=== PATIENT | female | born 1960 | race Caucasian/White ===

== ENCOUNTER 2017-10-09 13:19 | Emergency (ER) | payer MEDICAID ==
[2017-10-09 13:27] VITALS: BMI 25.7
[2017-10-09 13:30] VITALS: RESP 18; TEMP 97.9; O2SAT 98
[2017-10-09] MEDS ORDERED: Sodium Chloride 0.9% 500 ML IV STA (13:54)
--- NOTE | 2017-10-09 13:58 | ED PDOC ---
Arrival/HPI - General Chief Complaint: Headache Time Seen by Provider: 10/09/17 13:45 Historian: Patient - History of Present Illness Narrative History of Present Illness (Text): 10/09/17 13:55 57 year old female, with past medical history of hypertension and hyperlipidemia , presents to the Emergency department complaining of right-sided headache and dizziness since yesterday. Patient describes the dizziness as "spinning", which worsens with certain movements. Patient informs associated nausea and vomiting but denies similar symptoms in the past. Patient denies any fever, chills, diarrhea, abdominal pain, chest pain, shortness of breath or any other complaints. Patient denies smoking but admits to occasional drinking. PMD: Dr. Souza Time/Duration: 24 hours Symptom Onset: Gradual Symptom Course: Unchanged Quality: Aching Activities at Onset: Light Context: Home Associated Symptoms (Text): 10/09/17 14:11 Right sided headache with associated vertigo and nausea and vomiting since yesterday morning. No trauma. No abdominal pain. No chest pain palpitations or dyspnea. No weakness. No numbness. She has never experienced this previously. Past Medical History - Provider Review Nursing Documentation Reviewed: Yes - Infectious Disease Hx of Infectious Diseases: None - Tetanus Immunization Tetanus Immunization: Up to Date - Cardiac Hx Cardiac Disorders: No - Pulmonary Hx Respiratory Disorders: No - Neurological Hx Migraine: Yes - HEENT Hx HEENT Disorder: No - Renal Hx Renal Disorder: No - Endocrine/Metabolic Hx Endocrine Disorders: No - Hematological/Oncological Hx Blood Disorders: No - Integumentary Hx Dermatological Disorder: No - Musculoskeletal/Rheumatological Hx Musculoskeletal Disorders: No - Gastrointestinal Hx Gastrointestinal Disorders: No - Genitourinary/Gynecological Hx Genitourinary Disorders: No - Psychiatric Hx Depression: No Hx Emotional Abuse: No Hx Physical Abuse: No Hx Substance Use: No - Surgical History Hx Orthopedic Surgery: Yes (left) - Anesthesia Hx Anesthesia: No - Suicidal Assessment Feels Threatened In Home Enviroment: No Family/Social History - Physician Review Nursing Documentation Reviewed: Yes Family/Social History: No Known Family HX Smoking Status: Never Smoked Hx Alcohol Use: No Hx Substance Use: No Hx Substance Use Treatment: No Allergies/Home Meds Allergies/Adverse Reactions: Allergies Penicillins Allergy (Mild, Verified 10/09/17 13:27) RASH Review of Systems - Physician Review All systems were reviewed & negative as marked: Yes - Review of Systems Constitutional: Normal. absent: Fevers Eyes: Normal ENT: Normal Respiratory: Normal. absent: SOB Cardiovascular: Normal. absent: Chest Pain, Palpitations, Syncope Gastrointestinal: Nausea, Vomiting. absent: Abdominal Pain, Diarrhea Genitourinary Female: Normal Musculoskeletal: Normal Skin: Normal Neurological: Headache, Dizziness. absent: Focal Weakness, Seizure Endocrine: Normal Hemo/Lymphatic: Normal Psychiatric: Normal Physical Exam Vital Signs Reviewed: Yes Vital Signs Temp Pulse Resp BP Pulse Ox 10/09/17 13:30 97.9 F 66 18 118/80 98 Temperature: Afebrile Blood Pressure: Normal Pulse: Regular Respiratory Rate: Normal Appearance: Positive for: Well-Appearing, Non-Toxic, Uncomfortable Pain Distress: Mild Mental Status: Positive for: Alert and Oriented X 3 - Systems Exam Head: Present: Atraumatic, Normocephalic Pupils: Present: PERRL Extroacular Muscles: Present: EOMI Conjunctiva: Present: Normal Ears: Present: NORMAL TM, Normal Canal. No: Erythema Mouth: Present: Moist Mucous Membranes Pharnyx: No: ERYTHEMA, EXUDATE, TONSILS ENLARGED Neck: Present: Normal Range of Motion Respiratory/Chest: Present: Clear to Auscultation, Good Air Exchange. No: Respiratory Distress, Accessory Muscle Use Cardiovascular: Present: Regular Rate and Rhythm, Normal S1, S2. No: Murmurs Abdomen: Present: Normal Bowel Sounds. No: Tenderness, Distention, Peritoneal Signs Back: Present: Normal Inspection Upper Extremity: Present: Normal Inspection. No: Cyanosis, Edema Lower Extremity: Present: Other (right leg cast present). No: Edema Neurological: Present: GCS=15, CN II-XII Intact, Speech Normal, Motor Func Grossly Intact, Normal Sensory Function, Normal Cerebellar Funct Skin: Present: Warm, Dry, Normal Color. No: Rashes Psychiatric: Present: Alert, Oriented x 3, Normal Insight, Normal Concentration Medical Decision Making ED Course and Treatment: 10/09/17 14:01 Impression: 57 year old female presents to the Emergency department for headache and dizziness. Plan: -- CT of head -- EKG -- Labs -- Meclizine -- IV Fluids -- Toradol -- Zofran -- Reassess and disposition Progress Notes: 10/09/17 14:03 10/09/17 14:33 EKG shows sinus bradycardia approximately [address] or T-wave changes 10/09/17 15:05 Patient's nausea vomiting and dizziness have improved. No change in her headache. Imitrex has been ordered. 10/09/17 15:35 Almost immediately after receiving Imitrex the patient began to vomit; additional Zofran has been ordered. 10/09/17 16:04 Headache is still unchanged. Morphine has been ordered. 10/09/17 16:47 Headache and nausea and vomiting are improved. She reports that her dizziness has returned. She was offered hospital admission, but refused and wants to go home. Discharged home accompanied by her brother and son. Follow-up with PMD. Follow-up in the ER as needed. - Lab Interpretations Lab Results: 10/09/17 14:10 10/09/17 14:10 Lab Results 10/09/17 14:10: Sodium 143, Potassium 4.2, Chloride 102, Carbon Dioxide 29, Anion Gap 16, BUN 10, Creatinine 0.6 L, Est GFR ( Amer) > 60, Est GFR ( Non-Af Amer) > 60, Random Glucose 106, Calcium 10.3, Total Bilirubin 0.5, AST 30 , ALT 25, Alkaline Phosphatase 56, Lactate Dehydrogenase 496, Total Creatine Kinase 58, Troponin I < 0.01, Total Protein 7.8, Albumin 4.4, Globulin 3.5, Albumin/Globulin Ratio 1.3 10/09/17 14:10: WBC 5.0, RBC 4.52, Hgb 13.7, Hct 40.1, MCV 88.7, MCH 30.3, MCHC 34.2, RDW 13.0, Plt Count 247, MPV 10.0, Gran % 55.5, Lymph % (Auto) 30.7, [place] % (Auto) 7.4 H, Eos % (Auto) 6.2 H, Baso % (Auto) 0.2, Gran # 2.78, Lymph # ( Auto) 1.5, [place] # (Auto) 0.4, Eos # (Auto) 0.3, Baso # (Auto) 0.01 - RAD Interpretation Radiology Orders: 10/09/17 13:54 HEAD W/O CONTRAST [CT] Stat CT scan of the head as read by the radiologist shows no acute findings. Stone Paver: Radiologist - Medication Orders Current Medication Orders: Discontinued Medications Sodium Chloride (Sodium Chloride 0.9%) 500 mls @ 1,000 mls/hr IV .Q30M STA Stop: 10/09/17 14:23 Last Admin: 10/09/17 14:06 Dose: 1,000 mls/hr eMAR Start Stop Document 10/09/17 14:06 OCS (Rec: 10/09/17 14:07 OCS [id number]) Intravenous Solution Start Date 10/09/17 Start Time 14:07 End Date 10/09/17 End time 14:37 Total Infusion Time 30 Ketorolac Tromethamine (Toradol) 15 mg IVP STAT STA Stop: 10/09/17 13:58 Last Admin: 10/09/17 14:04 Dose: 15 mg MAR Pain Assessment Document 10/09/17 14:04 OCS (Rec: 10/09/17 14:04 OCS [id number]) Pain Reassessment Is this a pain reassessment? Yes Sleep Is patient sleeping during reassessment? No Presence of Pain Presence of Pain Yes Pain Scale Used Pain Scale Used Numeric Location Pain Location Body Title Lawyer Description Description Constant Intensity of Pain at present 10 Aggravating Factors ADL's IVP Administration Document 10/09/17 14:04 OCS (Rec: 10/09/17 14:04 OCS [id number]) Charges for Administration # of IVP Administrations 1 Meclizine HCl (Antivert) 25 mg PO ONCE ONE Stop: 10/09/17 13:56 Last Admin: 10/09/17 14:04 Dose: 25 mg Morphine Sulfate (Morphine) 4 mg IVP STAT STA Stop: 10/09/17 16:04 Last Admin: 10/09/17 16:17 Dose: 4 mg MAR Pain Assessment Document 10/09/17 16:17 OCS (Rec: 10/09/17 16:18 OCS [id number]) Pain Reassessment Is this a pain reassessment? Yes Sleep Is patient sleeping during reassessment? No Presence of Pain Presence of Pain Yes Pain Scale Used Pain Scale Used Numeric Location Pain Location Body Title Lawyer Description Description Constant Intensity of Pain at present 10 Aggravating Factors ADL's IVP Administration Document 10/09/17 16:17 OCS (Rec: 10/09/17 16:18 OCS [id number]) Charges for Administration # of IVP Administrations 1 Ondansetron HCl (Zofran Inj) 4 mg IVP ONCE ONE Stop: 10/09/17 13:56 Last Admin: 10/09/17 14:04 Dose: 4 mg IVP Administration Document 10/09/17 14:04 OCS (Rec: 10/09/17 14:04 OCS [id number]) Charges for Administration # of IVP Administrations 1 Ondansetron HCl (Zofran Inj) 4 mg IVP ONCE ONE Stop: 10/09/17 15:36 Last Admin: 10/09/17 15:47 Dose: 4 mg IVP Administration Document 10/09/17 15:47 OCS (Rec: 10/09/17 15:47 OCS [id number]) Charges for Administration # of IVP Administrations 1 Sumatriptan Succinate (Imitrex Inj) 6 mg SC STAT STA Stop: 10/09/17 15:06 Last Admin: 10/09/17 15:24 Dose: 6 mg Subcutaneous Administrations Document 10/09/17 15:24 OCS (Rec: 10/09/17 15:24 OCS [id number]) Injection Site MAR Injection Site Left Arm Charges for Administration # of Subcutaneous Administrations 1 - Scribe Statement The provider has reviewed the documentation as recorded by the Scribe Mart Quiroz. All medical record entries made by the Guanakitoibe were at my direction and personally dictated by me. I have reviewed the chart and agree that the record accurately reflects my personal performance of the history, physical exam, medical decision making, and the department course for this patient. I have also personally directed, reviewed, and agree with the discharge instructions and disposition. Disposition/Present on Arrival - Present on Arrival Any Indicators Present on Arrival: No History of DVT/PE: No History of Uncontrolled Diabetes: No Urinary Catheter: No History of Decub. Ulcer: No History Surgical Site Infection Following: None - Disposition Have Diagnosis and Disposition been Completed?: Yes Diagnosis: Vertigo, Nausea and vomiting, Headache Disposition: HOME/ ROUTINE Disposition Time: 16:48 Patient Plan: Discharge Condition: IMPROVED Discharge Instructions (ExitCare): Vertigo (a Type of Dizziness), Headache, Adult, Nausea and Vomiting, Adult (DC) Print Language: TAIWANESE Prescriptions: Meclizine [Meclizine*] 25 mg PO Q6 #20 tab Tramadol HCl [Ultram] 50 mg PO Q6 PRN #10 tab PRN Reason: Pain Ondansetron [Zofran Odt] 4 mg SL Q6 #20 odt Referrals: Steff Souza MD [Primary Care Provider] - Follow up with primary Forms: [employer] (Sami)
[2017-10-09 14:43] LABS: BASO # 0.01 K/mm3 (0.0-2.0); BASO % 0.2 % (0.0-3.0); EOS # 0.3 (0.0-0.7); EOS % 6.2 % (1.5-5.0); GRAN # 2.78 (1.4-6.5); GRAN % 55.5 % (50.0-68.0); HEMOGLOBIN 13.7 g/dL (12.0-16.0); LYMPH # 1.5 (1.2-3.4); LYMPH % 30.7 % (22.0-35.0); MEAN CELL VOLUME 88.7 fl (80.0-105.0); MEAN CORPUSCULAR HEMOGLOBIN 30.3 pg (25.0-35.0); MEAN CORPUSCULAR HGB CONC 34.2 g/dl (31.0-37.0); MONO # 0.4 (0.1-0.6); MONO % 7.4 % (1.0-6.0); RBC 4.52 10^6/uL (3.5-6.1)
[2017-10-09 14:56] LABS: ALB/GLOB RATIO 1.3 (1.1-1.8); ALBUMIN 4.4 g/dL (3.0-4.8); CALCIUM 10.3 mg/dL (8.4-10.5); GFR AFRICAN-AMERICAN > 60; GFR NON-AFRICAN AMERICAN > 60
[2017-10-09 14:58] LABS: ALT/SGPT 25 U/L (7-56); AST/SGOT 30 U/L (14-36); BLOOD UREA NITROGEN 10 mg/dL (7-21)
--- NOTE | 2017-10-09 15:02 | CT ---
PROCEDURE: CT HEAD WITHOUT CONTRAST. HISTORY: Dizziness COMPARISON: None available. TECHNIQUE: Axial computed tomography images were obtained through the head/brain without intravenous contrast. Radiation dose: Total exam DLP = 800.00 mGy-cm. This CT exam was performed using one or more of the following dose reduction techniques: Automated exposure control, adjustment of the mA and/or kV according to patient size, and/or use of iterative reconstruction technique. FINDINGS: HEMORRHAGE: No intracranial hemorrhage. BRAIN: Mcclelland-white matter differentiation is preserved. There is no mass, mass effect or abnormal extra-axial fluid collection. VENTRICLES: The ventricles are normal in size, shape and configuration. There is a cavum septum pellucidum. CALVARIUM: The skull base and calvarium are normal. PARANASAL SINUSES: There is mild mucosal thickening in the posterior ethmoid air cells, otherwise the visualized paranasal sinuses are predominantly clear. MASTOID AIR CELLS: Predominantly clear. OTHER FINDINGS: None. IMPRESSION: No acute intracranial abnormality.
[2017-10-09 15:07] LABS: TROPONIN I < 0.01 ng/mL
[2017-10-09] MEDS ORDERED: Morphine 4 mg/ml ISec IVP STA (16:03)
[2017-10-09 17:50] VITALS: BP 120/62; PULSE 70
--- NOTE | 2017-10-10 15:01 | CARD ---
APPROVED REPORT EKG Measurement Heart [id number] <Conclusion> Sinus bradycardia Otherwise normal ECG
== END 2017-10-09 17:22 | disposition home or self-care (01) ==
LOC: ED 13:19
DX: R42 Dizziness and giddiness (principal); R51 Headache; R11.2 Nausea with vomiting, unspecified; I10 Essential (primary) hypertension; E78.5 Hyperlipidemia, unspecified
CPT/HCPCS: 70450; 80053; 82550; 83615; 84484; 85025; 93005; 96372; 96374; 96375; 96376; 99285; J1885; J2270; J2405; J3030; J7040

== ENCOUNTER 2018-09-26 14:37 | Emergency (ER) | payer MEDICAID ==
[2018-09-26 14:37] VITALS: BMI 25.7
[2018-09-26 14:55] VITALS: O2SAT 98
--- NOTE | 2018-09-26 16:23 | RAD ---
Date of service: 09/26/2018 HISTORY: Cough COMPARISON: 01/22/2016 TECHNIQUE: Chest PA and lateral FINDINGS: LUNGS: No active pulmonary disease. PLEURA: No significant pleural effusion identified. No pneumothorax apparent. CARDIOVASCULAR: No aortic atherosclerotic calcification present. Normal cardiac size. No pulmonary vascular congestion. OSSEOUS STRUCTURES: No significant abnormalities. VISUALIZED UPPER ABDOMEN: Normal. OTHER FINDINGS: None. IMPRESSION: No active disease. No significant interval change compared to the prior examination(s).
--- NOTE | 2018-09-26 16:27 | ED PDOC ---
Arrival/HPI - General Chief Complaint: Cough, Cold, Congestion Time Seen by Provider: 09/26/18 14:56 Historian: Patient - History of Present Illness Narrative History of Present Illness (Text): 09/26/18 16:23 58yo female with no past medical history who present with complaint of nonproductive cough, headache, fever, body ache x 2days. States she took Tylenol yesterday. Denies chest pain, SOB, diaphoresis, nausea, vomiting, abdominal pain, sick contact, travel, any other complaint. Past Medical History - Provider Review Nursing Documentation Reviewed: Yes - Infectious Disease Hx of Infectious Diseases: None - Tetanus Immunization Tetanus Immunization: Up to Date - Reproductive Menopause: Yes - Cardiac Hx Cardiac Disorders: No - Pulmonary Hx Respiratory Disorders: No - Neurological Hx Migraine: Yes - HEENT Hx HEENT Disorder: No - Renal Hx Renal Disorder: No - Endocrine/Metabolic Hx Endocrine Disorders: No - Hematological/Oncological Hx Blood Disorders: No - Integumentary Hx Dermatological Disorder: No - Musculoskeletal/Rheumatological Hx Musculoskeletal Disorders: No - Gastrointestinal Hx Gastrointestinal Disorders: No - Genitourinary/Gynecological Hx Genitourinary Disorders: No - Psychiatric Hx Depression: No Hx Emotional Abuse: No Hx Physical Abuse: No Hx Substance Use: No - Surgical History Hx Orthopedic Surgery: Yes (left) - Anesthesia Hx Anesthesia: No - Suicidal Assessment Feels Threatened In Home Enviroment: No Family/Social History - Physician Review Nursing Documentation Reviewed: Yes Family/Social History: Unknown Family HX Smoking Status: Never Smoked Hx Alcohol Use: No Hx Substance Use: No Hx Substance Use Treatment: No Allergies/Home Meds Allergies/Adverse Reactions: Allergies Penicillins Allergy (Mild, Verified 10/09/17 13:27) RASH Review of Systems - Physician Review All systems were reviewed & negative as marked: Yes - Review of Systems Constitutional: Fatigue, Fevers Eyes: Normal ENT: Normal Respiratory: Cough Cardiovascular: Normal Gastrointestinal: Normal Genitourinary Female: Normal Musculoskeletal: Normal Skin: Normal Neurological: Normal Endocrine: Normal Hemo/Lymphatic: Normal Psychiatric: Normal Physical Exam Vital Signs Reviewed: Yes Vital Signs Temp Pulse Resp BP Pulse Ox 09/26/18 14:52 102.5 F H 96 H 20 144/87 98 Temperature: Febrile Blood Pressure: Normal Pulse: Regular Respiratory Rate: Normal Appearance: Positive for: Well-Appearing, Non-Toxic, Comfortable Pain Distress: None Mental Status: Positive for: Alert and Oriented X 3 - Systems Exam Head: Present: Atraumatic, Normocephalic Pupils: Present: PERRL Extroacular Muscles: Present: EOMI Conjunctiva: Present: Normal Mouth: Present: Moist Mucous Membranes Neck: Present: Normal Range of Motion Respiratory/Chest: Present: Clear to Auscultation, Good Air Exchange. No: Respiratory Distress, Accessory Muscle Use, Wheezes, Decreased Breath Sounds, Rales, Retracting, Rhonchi, Tachypneic Cardiovascular: Present: Regular Rate and Rhythm, Normal S1, S2. No: Murmurs Abdomen: No: Tenderness, Distention, Peritoneal Signs Back: Present: Normal Inspection Upper Extremity: Present: Normal Inspection. No: Cyanosis, Edema Lower Extremity: Present: Normal Inspection. No: Edema Neurological: Present: GCS=15, CN II-XII Intact, Speech Normal Skin: Present: Warm, Dry, Normal Color. No: Rashes Psychiatric: Present: Alert, Oriented x 3, Normal Insight, Normal Concentration Medical Decision Making ED Course and Treatment: 09/26/18 18:32 58yo female who presented to emergency department for stated history. Rapid flu was Positive for Influ A chest xray PT was treated with Ibuprofen and Tamiflu Result was DW the pt Advised to rest, drink plenty of fluid and follow up with her PMD. - RAD Interpretation Radiology Orders: 09/26/18 15:31 CHEST TWO VIEWS (PA/LAT) [RAD] Stat - Medication Orders Current Medication Orders: Discontinued Medications Ibuprofen (Motrin Tab) 600 mg PO STAT STA Stop: 09/26/18 15:33 Last Admin: 09/26/18 15:56 Dose: 600 mg MAR Pain/Vitals Document 09/26/18 15:56 MARQUISE (Rec: 09/26/18 15:56 [facility] [id number]) Pain Reassessment Is This A Pain ReAssessment? Yes Presence of Pain Presence of Pain Yes Pain Scale Used Protocol: PSCALES Pain Scale Used Numeric Location Pain Location Body Site generalized aches Intensity 5 Scale Used Numeric Disposition/Present on Arrival - Present on Arrival Any Indicators Present on Arrival: No History of DVT/PE: No History of Uncontrolled Diabetes: No Urinary Catheter: No History of Decub. Ulcer: No History Surgical Site Infection Following: None - Disposition Have Diagnosis and Disposition been Completed?: Yes Diagnosis: Influenza Disposition: HOME/ ROUTINE Disposition Time: 16:30 Patient Plan: Discharge Condition: STABLE Discharge Instructions (ExitCare): Flu, Adult (DC) Additional Instructions: Drink plenty of fluid and rest Follow up with your Doctor Return to emergency department for any new or worsening symptoms Prescriptions: Benzonatate [Tessalon Perles] 100 mg PO TID #20 sgl Oseltamivir Phosphate [Tamiflu] 75 mg PO BID #10 capsule Referrals: Steff Souza MD [Primary Care Provider] - Follow up with primary Forms: [employer] (Frisian)
[2018-09-26 16:44] VITALS: BP 105/64; PULSE 91; RESP 18; TEMP 99
== END 2018-09-26 16:48 | disposition home or self-care (01) ==
LOC: ED 14:37
DX: J11.1 Influenza due to unidentified influenza virus with other respiratory manifestations (principal)

== ENCOUNTER 2018-12-29 15:52 | Emergency (ER) | payer MEDICAID ==
[2018-12-29 16:10] VITALS: BP 125/80; PULSE 73; RESP 18; TEMP 98.2; O2SAT 97; BMI 26.5
[2018-12-29] MEDS ORDERED: DiphenhydrAMINE 50 mg/ml Inj IVP STA (16:20)
[2018-12-29] MEDS ORDERED: Sodium Chloride 0.9% 1,000 ML IV STA (16:21)
--- NOTE | 2018-12-29 16:46 | ED PDOC ---
Arrival/HPI - General Chief Complaint: Headache Historian: Patient - History of Present Illness Narrative History of Present Illness (Text): 12/29/18 16:44 A 58 year old female, whose past medical history includes migraines, cervical myelopathy, hypertension and hyperlipidemia, presents to the emergency department complaining of a migraine headache since yesterday. Patient notes she is experiencing associated vomiting, dizziness, photophobia, and weakness secondary to cervical myelopathy. Patient reports pain is located in the right side of her head radiating down to her right neck. Patient notes she took her prescribed meloxicam to no relief. Patient denies any fever, chills, shortness of breath, chest pain, diarrhea, nausea, urinary symptoms, back pain, or any other complaints. No PMD Time/Duration: 24 hours Symptom Onset: Gradual Symptom Course: Unchanged Activities at Onset: Light Context: Home Past Medical History - Provider Review Nursing Documentation Reviewed: Yes - Infectious Disease Hx of Infectious Diseases: None - Tetanus Immunization Tetanus Immunization: Up to Date - Reproductive Menopause: Yes - Cardiac Hx Cardiac Disorders: No - Pulmonary Hx Respiratory Disorders: No - Neurological Hx Migraine: Yes - HEENT Hx HEENT Disorder: No - Renal Hx Renal Disorder: No - Endocrine/Metabolic Hx Endocrine Disorders: No - Hematological/Oncological Hx Blood Disorders: No - Integumentary Hx Dermatological Disorder: No - Musculoskeletal/Rheumatological Hx Musculoskeletal Disorders: No - Gastrointestinal Hx Gastrointestinal Disorders: No - Genitourinary/Gynecological Hx Genitourinary Disorders: No - Psychiatric Hx Depression: No Hx Emotional Abuse: No Hx Physical Abuse: No Hx Substance Use: No - Surgical History Hx Orthopedic Surgery: Yes (left) - Anesthesia Hx Anesthesia: No - Suicidal Assessment Feels Threatened In Home Enviroment: No Family/Social History - Physician Review Nursing Documentation Reviewed: Yes Family/Social History: No Known Family HX Smoking Status: Never Smoked Hx Alcohol Use: No Hx Substance Use: No Hx Substance Use Treatment: No Allergies/Home Meds Allergies/Adverse Reactions: Allergies Penicillins Allergy (Mild, Verified 10/09/17 13:27) RASH Review of Systems - Physician Review All systems were reviewed & negative as marked: Yes - Review of Systems Constitutional: absent: Fevers, Other (chills) Eyes: Photophobia Respiratory: absent: SOB Cardiovascular: absent: Chest Pain Gastrointestinal: Vomiting. absent: Diarrhea, Nausea Genitourinary Female: absent: Urine Output Changes Musculoskeletal: Neck Pain (right neck pain). absent: Back Pain Neurological: Headache (migraine headache), Dizziness, Other (weakness secondary to cervical myelopathy) Physical Exam Vital Signs Reviewed: Yes Vital Signs Temp Pulse Resp BP Pulse Ox 12/29/18 16:09 98.2 F 73 18 125/80 97 Temperature: Afebrile Blood Pressure: Normal Pulse: Regular Respiratory Rate: Normal Appearance: Positive for: Well-Appearing, Non-Toxic Pain Distress: Mild Mental Status: Positive for: Alert and Oriented X 3 - Systems Exam Head: Present: Atraumatic, Normocephalic, Tenderness (tenderness to palpation to right yarsani) Pupils: Present: PERRL Extroacular Muscles: Present: EOMI Conjunctiva: Present: Normal Respiratory/Chest: Present: Clear to Auscultation, Good Air Exchange. No: Respiratory Distress, Accessory Muscle Use Cardiovascular: Present: Regular Rate and Rhythm, Normal S1, S2. No: Murmurs Abdomen: No: Tenderness, Distention, Peritoneal Signs Upper Extremity: Present: Normal Inspection. No: Cyanosis, Edema Lower Extremity: Present: Normal Inspection, Other (cast noted to left lower extremity). No: Edema Neurological: Present: GCS=15, CN II-XII Intact, Speech Normal Skin: Present: Warm, Dry, Normal Color. No: Rashes Psychiatric: Present: Alert, Oriented x 3, Normal Insight, Normal Concentration Medical Decision Making ED Course and Treatment: 12/29/18 16:44 Impression: 58 year old female presenting to the emergency department complaining of a headache. Plan: -- Decadron injection -- Benadryl -- Toradol -- Reglan -- IV fluids -- Reassess and disposition Prior Visits: Notes and results from previous visits were reviewed. Progress Notes: 12/29/18 18:51 Upon re-evaluation, patient states she feels better. - Medication Orders Current Medication Orders: Sodium Chloride (Sodium Chloride 0.9%) 1,000 mls @ 999 mls/hr IV .Q1H1M STA Stop: 12/29/18 17:21 Discontinued Medications Dexamethasone (Decadron Inj) 10 mg IVP STAT STA Stop: 12/29/18 16:21 Diphenhydramine HCl (Benadryl) 50 mg IVP STAT STA Stop: 12/29/18 16:21 Ketorolac Tromethamine (Toradol) 30 mg IVP STAT STA Stop: 12/29/18 16:21 Metoclopramide HCl (Reglan) 10 mg IVP STAT STA Stop: 12/29/18 16:21 - Scribe Statement The provider has reviewed the documentation as recorded by the Scribe Marlyn Hardy All medical record entries made by the Scribe were at my direction and personally dictated by me. I have reviewed the chart and agree that the record accurately reflects my personal performance of the history, physical exam, medical decision making, and the department course for this patient. I have also personally directed, reviewed, and agree with the discharge instructions and disposition. Disposition/Present on Arrival - Present on Arrival Any Indicators Present on Arrival: No History of DVT/PE: No History of Uncontrolled Diabetes: No Urinary Catheter: No History of Decub. Ulcer: No History Surgical Site Infection Following: None - Disposition Have Diagnosis and Disposition been Completed?: Yes Diagnosis: Migraine Disposition: HOME/ ROUTINE Disposition Time: 19:09 Patient Plan: Discharge Condition: IMPROVED Discharge Instructions (ExitCare): Headache, Adult (DC), Migraine Headaches in Adults Print Language: GIBRALTARIAN Additional Instructions: All medical record entries made by the Scribe were at my direction and personally dictated by me. I have reviewed the chart and agree that the record accurately reflects my personal performance of the history, physical exam, medical decision making, and the department course for this patient. I have also personally directed, reviewed, and agree with the discharge instructions and disposition. Please follow up with your neurologist Prescriptions: Metoclopramide HCl [Reglan] 10 mg PO Q6H #10 tablet Naproxen [Naprosyn] 500 mg PO BID #12 tablet Referrals: Dante Franco MD [Staff Provider] - Follow up with primary Forms: [employer] (Ukrainian), WORK NOTE
== END 2018-12-29 19:30 | disposition home or self-care (01) ==
LOC: ED 15:52
DX: G43.909 Migraine, unspecified, not intractable, without status migrainosus (principal); E78.5 Hyperlipidemia, unspecified; I10 Essential (primary) hypertension
CPT/HCPCS: 96374; 96375; 99285; J1100; J1200; J1885; J2765; J7030